=== PATIENT | female | born 1975 | race Caucasian/White ===

== ENCOUNTER 2017-09-28 16:37 | Emergency (ER) | payer MEDICAID ==
[~2017-09-28] VITALS: Ht 167.6 cm; Wt 50.0 kg
[~2017-09-28 16:37] MED LIST: IBUP-1985 PO
[2017-09-28] MEDS ORDERED: acetaminophen 325mg tablet PO ONE (17:15)
[2017-09-28 17:20] VITALS: BP 125/83
== END 2017-09-28 17:21 | disposition home or self-care (01) ==
LOC: ER 16:38
DX: S50.811A Abrasion of right forearm, initial encounter (principal); G89.29 Other chronic pain; Z79.899 Other long term (current) drug therapy; W01.0XXA Fall on same level from slipping, tripping and stumbling without subsequent striking against object, initial encounter; Y93.89 Activity, other specified; Y92.89 Other specified places as the place of occurrence of the external cause; Y99.8 Other external cause status
CPT/HCPCS: 73090; 99284

== ENCOUNTER 2024-07-26 19:10 | Emergency (ER) | payer MEDICAID ==
[~2024-07-26] VITALS: Ht 170.2 cm; Wt 52.3 kg
[2024-07-26 19:12] VITALS: BP 102/61; TEMP 99.6
[2024-07-26] MEDS ORDERED: DOXY100C43 PO (20:15)
[2024-07-26] MEDS ORDERED: ALB0.5UD IH (20:15)
[2024-07-26] MEDS ORDERED: BENZ-38 PO (20:15)
[2024-07-26] MEDS: DOXYCYCLINE 100MG CAPSULE PO STA (20:33)
[2024-07-26] MEDS: albuterol 2.5 MG/3 ML nebule NEB ONE (20:37)
[2024-07-26 20:38] VITALS: PULSE 88; RESP 16; O2SAT 95
[2024-07-26 20:43] VITALS: PULSE 89; RESP 18; O2SAT 97
== END 2024-07-26 21:07 | disposition home or self-care (01) ==
LOC: ER 19:10
DX: J18.9 Pneumonia, unspecified organism (principal); Z20.822 Contact with and (suspected) exposure to COVID-19; F17.210 Nicotine dependence, cigarettes, uncomplicated; F12.10 Cannabis abuse, uncomplicated; Z79.1 Long term (current) use of non-steroidal anti-inflammatories (NSAID); Z79.2 Long term (current) use of antibiotics
CPT/HCPCS: 36415; 71046; 87502; 87503; 87811; 94640; 94760; 99284; A4565

== ENCOUNTER 2025-05-30 11:57 | Emergency (ER) | payer MEDICAID ==
[~2025-05-30] VITALS: Ht 170.2 cm; Wt 53.2 kg
[~2025-05-30 11:57] MED LIST changes: -IBUP-1985 PO; +IBUP600T52 PO
[2025-05-30 11:58] VITALS: BP 162/78; PULSE 102; RESP 16; O2SAT 94
[2025-05-30 12:53] LABS: UA COLLECTION TYPE CLN CATCH MIDSTREAM
[2025-05-30 12:56] LABS: MUCUS STRANDS NONE SEEN /LPF (Neg); SQUAMOUS EPITHELIAL CELL,UR FEW /LPF (FEW)
[2025-05-30] MEDS ORDERED: NITR100C6 PO (13:45)
--- NOTE | 2025-05-30 13:52 | Physician Documentation ---
History of Present Illness ~ Chief Complaint: Urinary Symptoms Stated Complaint: UTI Time Seen by MD: 12:12 Primary Medical Doctor: Pat Crook Source: patient Mode of Arrival: POV Exam Limitations: no limitations Casey Bed Addressed? Ms. Abernathy is a 50 y/o female who presents with c/o burning with urination. States that she developed discomfort with urination three days ago and it has persisted. She has started taking Pyridium but still has some degree of discomfort. No fever/chills. No ABD pain. No vaginal lesions. No vaginal discharge. Denies N/V/D. No BRBPR or melena. She is without additional complaints. Medication Reconciliation Allergies: Coded Allergies: No Known Allergies (Unverified , 05/30/25) Scheduled Ibuprofen (Ibuprofen), 1 TAB PO QID Past Medical History Past Medical History: Chronic Pain Past Surgical History: no surgical history Alcohol Use: Heavy Drug Use: none Lives with: Family Lives In: Home Review of Systems All Other Systems at this time: Reviewed and Negative Physical Exam Vital Signs: RN Vital Signs have been reviewed: Yes, Temperature: 97.8, Source: Temporal, Heart Rate: 102, Respiratory Rate: 16, BP: 162/78, Pulse Oximetry: 94, Weight: 53.180 Oxygen Flow Rate: 0 Physical Exam VITALS: Reviewed and as above. GENERAL: Alert, no apparent distress. HEENT: Normocephalic, atraumatic, PERRL, EOMI, dry mucosa, no erythema RESPIRATORY: Lungs clear, normal breath sounds, no respiratory distress. CHEST: No accessory muscle use, no retractions CV: Regular rate, rhythm, no edema, no murmur, No: JVD GI: Soft, tenderness to the lower abdomen with palpation., bowels sounds present, no rebound, guarding, or rigidity BACK: No CVA tenderness, or swelling MUSCULOSKELETAL No deformities, no edema SKIN: Warm and dry, no rash NEURO: Oriented x4, No motor or sensory deficit PSYCH: Normal mood and affect, no agitation Progress Results/Orders Results/Orders Vital Signs 05/30/25 11:58 Temp 97.8 Pulse 102 Resp 16 B/P (MAP) 162/78 Pulse Ox 94 O2 Flow Rate 0 Laboratory Tests Test 05/30/25 12:01 Urine Specimen Description Cln catch midstream Urine Color [place] Urine Clarity Slightly cloudy Urine pH Urine Specific [place] Urine Protein Urine Glucose (UA) Urine Ketones Urine Occult Blood Urine Nitrite Urine Bilirubin Urine Urobilinogen Urine Leukocyte Esterase Urine RBC 0-2 Urine WBC 20-30 H Urine Squamous Epithelial Cells Few Urine Bacteria Few Urine Mucus None seen Urine Culture Indicated Indicated Volume Urine Centrifuged 10 ml Urine Comment Medical Decision Making Genital Diff Dx:Considerations: Include: Constipation, Cervicitis, Dsymenorrhea, Ectopic , PID, , UTI, Vaginitis Additional Comment While here in the ED, she remained hemodynamically normal with ABC's intact and in NAD. She is afebrile and nontoxic. UA with + bacteria. She is taking Pyridium and therefore we are unable to get an accurate read on the UA. She will be prescribed Macrobid and given follow-up and return instructions. She voiced understanding and agreement with d/c instructions. Departure Disposition: HOME / SELF CARE / HOMELESS Impression: Primary Impression: Urinary tract pain Additional Impression: Acute urinary tract infection Condition: Stable Discharge Instructions: Urinary Tract Infection, Adult Referrals: NO PRIMARY CARE PROVIDER (PCP) Prescriptions Nitrofurantoin Monohyd/M-Cryst (Macrobid 100 mg Capsule) 100 Mg Capsule 1 CAP PO Q12H for 5 Days, #10 CAP 0 Refills Prov: JODIE CABALLERO MD 05/30/25 Comments Take medications as prescribed. ease follow up with her primary care provider. Please return to the emergency department with any worsening or recurrent symptoms or any additional concerning symptoms that we discussed here today. Education Educated: Patient Educated regarding: diagnosis, treatment Signature Scribe Signature: N/A Attestation: N/A JODIE CABALLERO MD May 30, 2025 13:52
[2025-05-30 13:53] VITALS: TEMP 97.8
== END 2025-05-30 13:54 | disposition home or self-care (01) ==
LOC: ER 11:57
DX: N39.0 Urinary tract infection, site not specified (principal); F10.90 Alcohol use, unspecified, uncomplicated; G89.29 Other chronic pain; Z79.899 Other long term (current) drug therapy; Y90.9 Presence of alcohol in blood, level not specified
CPT/HCPCS: 81001; 87088; 99283